=== PATIENT | male | born 1995 | race Caucasian/White ===

== ENCOUNTER 2017-12-03 18:42 | Emergency (ER) | payer MEDICAID, OTHER ==
--- NOTE | 2017-12-03 19:45 | C.PDOC ---
History Of Present Illness 22 year old male presents to the ED for evaluation of body ache, subjective fever, and sore throat since yesterday. Reports little brother has similar symptoms. Denies nausea, vomiting, cough, abdominal pain and any other symptoms. Time Seen by Provider: 12/03/17 19:04 Chief Complaint (Nursing): Cough, Cold, Congestion History Per: Patient History/Exam Limitations: no limitations Onset/Duration Of Symptoms: Hrs Current Symptoms Are (Timing): Still Present Past Medical History Reviewed: Historical Data, Nursing Documentation, Vital Signs Vital Signs: Last Vital Signs Temp 99 F 12/03/17 18:49 Pulse 98 H 12/03/17 18:49 Resp 18 12/03/17 18:49 BP 128/78 12/03/17 18:49 Pulse Ox 98 12/03/17 18:49 - Medical History PMH: Asthma Family History: States: Unknown Family Hx - Social History Hx Alcohol Use: No Hx Substance Use: No Review Of Systems Constitutional: Positive for: Fever (subjective ), Other (myalgias). Negative for: Chills ENT: Positive for: Nose Congestion, Throat Pain (sore throat. ). Negative for: Ear Pain Respiratory: Negative for: Cough, Shortness of Breath Gastrointestinal: Negative for: Nausea, Vomiting, Abdominal Pain Skin: Negative for: Rash Neurological: Negative for: Weakness, Numbness Physical Exam - Physical Exam Appears: Non-toxic, No Acute Distress Skin: Normal Color, Warm, Dry Head: Atraumatic, Normacephalic Eye(s): bilateral: Normal Inspection, PERRL Ear(s): Bilateral: Normal Nose: Normal, No Discharge Oral Mucosa: Moist Tongue: Normal Appearing Lips: Normal Appearing Throat: Erythema (mild.), No Exudate Neck: Normal ROM, Supple Lymphatic: No Adenopathy Cardiovascular: Rhythm Regular, No Murmur Respiratory: Normal Breath Sounds, No Wheezing Gastrointestinal/Abdominal: Bowel Sounds, Soft, No Tenderness Extremity: Normal ROM (x4) Neurological/Psych: Oriented x3, Normal Speech, Normal Motor, Normal Sensation, Normal Reflexes Gait: Steady ED Course And Treatment O2 Sat by Pulse Oximetry: 98 (RA) Pulse Ox Interpretation: Normal Progress Note: Influenza A B test done. Rapid Strep done. Given Tylenol. Medical Decision Making Medical Decision Making: will get rapid strep and flu swabs \both neg, d/c with viral illenss Disposition Counseled Patient/Family Regarding: Diagnosis, Need For Followup - Disposition Referrals: 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 - Scribe Statement The provider has reviewed the documentation as recorded by the Scribe (Nori Rodriguez)
[2017-12-03 20:05] LABS: INFLUENZA A B NEGATIVE FOR FLU A/B (NEGATIVE)
[2017-12-03 21:59] VITALS: BP 120/70; PULSE 88; RESP 20; TEMP 98.6
[2017-12-09 20:34] VITALS: O2SAT 98
== END 2017-12-03 21:25 | disposition home or self-care (01) ==
LOC: C.ER 18:42
DX: J06.9 Acute upper respiratory infection, unspecified (principal); B34.9 Viral infection, unspecified